=== PATIENT | female | born 1940 | race Two or more races ===

== ENCOUNTER → 2016-04-21 | Outpatient (CLI) | payer MEDICARE, MEDICAID ==
[2016-04-21 13:24] LABS: ABSOLUTE BASOPHILS # (AUTO) 0.1 10^3/uL (0.0-0.2); ABSOLUTE EOSINOPHILS # (AUTO) 0.1 10^3/uL (0.0-0.6); ABSOLUTE LYMPHOCYTES (AUTO) 1.6 10^3/uL (0.5-4.7); ABSOLUTE MONOCYTES (AUTO) 0.4 10^3/uL (0.1-1.4); BASOPHILS % (AUTO) 0.9 % (0-2); HEMATOCRIT 41.7 % (36.0-47.0); HEMOGLOBIN 14.2 g/dL (12.0-15.5); HGB HCT DIFFERENCE 0.9; LYMPHOCYTES % (AUTO) 21.5 % (13-45); MEAN CORPUSCULAR HEMOGLOBIN 31.3 pg (27.0-33.4); MEAN CORPUSCULAR HGB CONC 33.9 g/dL (32.0-36.0); MEAN CORPUSCULAR VOLUME 92 fl (80-97); MONOCYTES % (AUTO) 6.1 % (3-13); RED BLOOD COUNT 4.52 10^6/uL (3.72-5.28); RED CELL DISTRIBUTION WIDTH 13.1 % (11.5-14.0); SEGMENTED NEUTROPHILS % (AUTO) 69.5 % (42-78); WHITE BLOOD COUNT 7.3 10^3/uL (4.0-10.5)
[2016-04-21 13:55] LABS: ALANINE AMINOTRANSFERASE 37 U/L (9-52); ALBUMIN 4.6 g/dL (3.5-5.0); ALKALINE PHOSPHATASE 66 U/L (38-126); ANION GAP 14 (5-19); ASPARTATE AMINO TRANSFERASE 28 U/L (14-36); BILIRUBIN,TOTAL 0.7 mg/dL (0.2-1.3); BLOOD UREA NITROGEN 29 mg/dL (7-20); CALCIUM 10.3 mg/dL (8.4-10.2); CARBON DIOXIDE 28 mmol/L (22-30); CHLORIDE 99 mmol/L (98-107); CREATININE RESULT 1.26 mg/dL (0.52-1.25); GLUCOSE 100 mg/dL (75-110); POTASSIUM 4.2 mmol/L (3.6-5.0); SODIUM 141.4 mmol/L (137-145); TOTAL PROTEIN 8.2 g/dL (6.3-8.2)
[2016-04-21 14:02] LABS: ERYTHROCYTE SEDIMENTATION RATE 35 mm/hr (0-30)
[2016-04-22 11:38] LABS: JO-1 ANTIBODY <0.2 AI (0.0-0.9)
[2016-04-22 13:13] LABS: ANTI-SS-B AB SJOGREN'S <0.2 AI (0.0-0.9)
[2016-04-23 06:06] LABS: ANGIOTENSIN-CONVERTING ENZYME 20 U/L (14-82)
[2016-04-25 17:37] LABS: CYTOPLASMIC (C-ANCA) <1:20 titer (Neg:<1:20)
== END ==
LOC: LAB 12:05
PROVIDERS: ATTEND Internal Medicine Critical Care Medicine
DX: J45.909 Unspecified asthma, uncomplicated (principal); R05 Cough; R06.09 Other forms of dyspnea; R12 Heartburn; R91.8 Other nonspecific abnormal finding of lung field; R91.1 Solitary pulmonary nodule; J84.10 Pulmonary fibrosis, unspecified; J84.9 Interstitial pulmonary disease, unspecified
CPT/HCPCS: 36415; 80053; 81332; 82164; 83880; 85025; 85652; 86021; 86038; 86140; 86225; 86235; 86430

== ENCOUNTER → 2016-09-14 | Outpatient (CLI) | payer MEDICARE, MEDICAID ==
[~2016-09-14] MED LIST: AMINOPHYLLINE INJ/PF 250 MG/10 ML SDV IV ONE; REGADENOSON INJ 0.4 MG/5 ML DISP.SYRIN IV ONE
--- NOTE | 2016-09-14 19:38 | DRAGON STRESS TEST REPORT ---
INTRAVENOUS LEXISCAN CARDIOLITE STRESS TEST USING SINGLE PHOTON EMMISION COMPUTERIZED TOMOGRAPHIC. DATE OF PROCEDURE: September 14, 2016 INDICATION : Dyspnea CARDIAC RISK FACTORS: Hypertension, dyslipidemia, family history of CAD RESTING EKG: Sinus rhythm, no baseline ST segment changes noted. STRESS EKG: No significant changes noted with LexiScan bolus REASON FOR TERMINATION: Protocol. PROCEDURE REPORT: Baseline heart rate 67 beats per minute with blood pressure of 96/60. Patient had no significant complaints. Heart rate at 2 minutes post bolus 96 with a blood pressure of 93/46. 3 minutes post bolus heart rate 96 with blood pressure of 93/50. No significant EKG changes were noted. Patient had no significant complaints during the procedure or postprocedure. Patient injected with Aminophyllin 75 mg at 3 minutes or later after Lexiscan bolus. CONCLUSIONS: Normal EKG and hemodynamic response to IV LexiScan. NUCLEAR DATA: At rest the patient was given 12.86 millicuries of technetium 99 sestamibi injected intravenously. As per protocol rest gated SPECT images were obtained. Subsequently the patient was given intravenous LexiScan at a dose of 0.4 mg in 5 mL intravenously, followed by flush with normal saline. Subsequently the stress dose of 36.9 millicuries of technetium 99 sestamibi was injected intravenously. As per protocol stress gated images were obtained. NUCLEAR INTERPRETATION: Both raw and processed data were used for interpretation. Visual, qualitative, computer-generated quantitative data was used. There was good myocardial uptake of technetium compound. Motion artifact and soft tissue attenuations were noted. Increased visceral uptake was noted. No definitive areas of transient perfusion defect noted. No definitive areas of fixed perfusion defect or scars noted. EKG gated imaging showed LV EF at 59 %, rest and stress gated EF similar visually. T. I D. ratio was 0.86. Lung heart ratio noted to be at upper normal limits 0.40. No significant extracardiac and abnormal radiotracer activities were noted. RV free wall uptake was noted to be []. IMPRESSION: Also refer to comments under nuclear interpretation. Also test results needs to be interpreted in the context of pretest probability. 1. There is no definitive scintigraphic evidence of LexiScan induced myocardial ischemia. 2. There is no definitive scintigraphic evidence of myocardial infarction/scar. 3. EKG gated imaging shows left ejection fraction of approximately 59 %. 4. Lung/heart ratio seems to be visually increased but at upper limit of normal by computer calculation. Consider interstitial lung disease etc. 5. Clinical correlation requested as occasionally single vessel disease or balanced ischemia could be missed. In approximately 10% of the cases Lexiscan may not cause adequate vasodilatory stress. RECOMMENDATIONS: Aggressive risk factor modification, medical therapy. Clinical correlation with echocardiogram derived ejection fraction. Inability to exercise by itself can lead to increased cardiovascular event risks. Anu Merlos M.D., [facility]ITALCarol Piling Setter cooker helper, Board certified in cardiovascular diseases, Nuclear cardiology, Echocardiography Cardiac CT and cardiac MRI Ph. [phone] [facility]
== END ==
LOC: RAD 07:50
PROVIDERS: ATTEND Internal Medicine Cardiovascular Disease
DX: R06.09 Other forms of dyspnea (principal)
CPT/HCPCS: 93017; 78452; A9500; J2785; J0280; Q9969

== ENCOUNTER → 2016-09-18 | Outpatient (CLI) | payer MEDICARE, MEDICAID ==
[2016-09-18 09:24] LABS: ABSOLUTE BASOPHILS # (AUTO) 0.1 10^3/uL (0.0-0.2); ABSOLUTE EOSINOPHILS # (AUTO) 0.3 10^3/uL (0.0-0.6); ABSOLUTE LYMPHOCYTES (AUTO) 1.7 10^3/uL (0.5-4.7); ABSOLUTE MONOCYTES (AUTO) 0.5 10^3/uL (0.1-1.4); ABSOLUTE NEUT (AUTO) 4.6 10^3/uL (1.7-8.2); BASOPHILS % (AUTO) 0.9 % (0-2); EOSINOPHILS % (AUTO) 4.6 % (0-6); HEMATOCRIT 37.9 % (36.0-47.0); HEMOGLOBIN 13.1 g/dL (12.0-15.5); HGB HCT DIFFERENCE 1.4; LYMPHOCYTES % (AUTO) 23.2 % (13-45); MEAN CORPUSCULAR HEMOGLOBIN 32.2 pg (27.0-33.4); MEAN CORPUSCULAR HGB CONC 34.7 g/dL (32.0-36.0); MEAN CORPUSCULAR VOLUME 93 fl (80-97); MONOCYTES % (AUTO) 7.5 % (3-13); RED BLOOD COUNT 4.09 10^6/uL (3.72-5.28); RED CELL DISTRIBUTION WIDTH 14.2 % (11.5-14.0); SEGMENTED NEUTROPHILS % (AUTO) 63.8 % (42-78); WHITE BLOOD COUNT 7.2 10^3/uL (4.0-10.5)
[2016-09-18 09:39] LABS: PARTIAL THROMBOPLASTIN TIME 31.5 SEC (23.5-35.8); PROTHROMBIN TIME 12.8 SEC (11.4-15.4)
[2016-09-18 09:42] LABS: ANION GAP 11 (5-19); BLOOD UREA NITROGEN 23 mg/dL (7-20); CALCIUM 9.5 mg/dL (8.4-10.2); CARBON DIOXIDE 27 mmol/L (22-30); CHLORIDE 104 mmol/L (98-107); CREATININE RESULT 1.19 mg/dL (0.52-1.25); GLUCOSE 99 mg/dL (75-110); POTASSIUM 4.5 mmol/L (3.6-5.0); SODIUM 142.1 mmol/L (137-145)
== END ==
LOC: OD 08:22
PROVIDERS: ATTEND Internal Medicine Critical Care Medicine
DX: J45.909 Unspecified asthma, uncomplicated (principal); R06.09 Other forms of dyspnea; R91.8 Other nonspecific abnormal finding of lung field; R05 Cough; K21.9 Gastro-esophageal reflux disease without esophagitis; R12 Heartburn; J84.9 Interstitial pulmonary disease, unspecified; J84.10 Pulmonary fibrosis, unspecified; M19.90 Unspecified osteoarthritis, unspecified site
CPT/HCPCS: 36415; 80048; 85025; 85610; 85730

== ENCOUNTER 2016-09-20 08:08 | Day surgery (SDC) | payer MEDICARE, MEDICAID ==
[~2016-09-20 08:08] MED LIST changes: -AMINOPHYLLINE INJ/PF 250 MG/10 ML SDV IV ONE; +EPINEPHRINE INJ 1 MG/10 ML DISP.SYRIN ONE; +EPINEPHRINE INJ/PF 1 MG/1 ML AMPULE ONE; +FLUMAZENIL INJ 0.5 MG/5 ML VIAL IV ONE; +LIDOCAINE 2% INJ (20 MG/ML) 20 ML MDV ONE; +LIDOCAINE 2% JELLY 30 ML TUBE ONE; +MIDAZOLAM 2 MG/2 ML INJ ONE; +NALOXONE HCL INJ/PF 0.4 MG/1 ML SDV ONE; -REGADENOSON INJ 0.4 MG/5 ML DISP.SYRIN IV ONE
[2016-09-20] MEDS: MIDAZOLAM 2 MG/2 ML INJ ONE ×14 (10:50→11:31)
[2016-09-20] MEDS: FENTANYL CITRATE INJ/PF 100 MCG/2 ML AMPUL ONE ×7 (11:01→11:29)
--- NOTE | 2016-09-20 12:25 | RADIOLOGY REPORT (SQ) ---
EXAM DESCRIPTION: CHEST SINGLE VIEW COMPLETED DATE/TIME: 09/20/2016 12:13 pm REASON FOR STUDY: POST BRONCH COMPARISON: None. EXAM PARAMETERS: NUMBER OF VIEWS: One view. TECHNIQUE: Single frontal radiographic view of the chest acquired. RADIATION DOSE: NA LIMITATIONS: None. FINDINGS: LUNGS AND PLEURA: Focal airspace opacity noted in the left retrocardiac region could repre sent area of atelectasis, edema, or infiltrate. There is pulmonary vascular congestion and interstit ial prominence noted throughout. No pneumothorax. MEDIASTINUM AND HILAR STRUCTURES: No masses. Contour normal. HEART AND VASCULAR STRUCTURES: Heart normal in size. Normal vasculature. BONES: No acute findings. HARDWARE: EKG leads overlie the chest. OTHER: No other significant finding. IMPRESSION: Airspace opacity noted in the left lung base in the retrocardiac region which could be a telectasis, infiltrate, or edema. There is prominence of pulmonary vasculature and interstitium whic h could represent underlying edema/ infection versus chronic changes. No pneumothorax post bronchosc opy. TECHNICAL DOCUMENTATION: JOB ID: [id number]
--- NOTE | 2016-09-20 12:43 | OPERATIVE REPORT E ---
Operative Report NAME: NICKY PAULINO : 1940 AGE: 75Y DATE OF SURGERY: 09/20/2016 ROOM: SURGEON: LENA KLEIN M.D. INDICATIONS: The patient is a 75-year-old lady who came in for flexible bronchoscopy with bronchial washing, bronchoalveolar lavage, and transbronchial lung biopsy for new onset of interstitial lung disease. Complained about increased shortness of breath Pre-Operative Diagnosis: Interstitial lung disease - negative CTD work up. - possible NSIP vs sarcoidosis vs UIP vs aytpical mycobacterial or bacterial or fungal infection. Post Operative Diagnosis: the same. Surgeon: Dr Klein Procedure: Flexible bronchoscopy with bronchial washing both lungs; bronchoalveolar lavage left upper lobe - lingular segments and right lower lobe - posterior basal segment; transbronchial lung biopsy x 2 on left upper lobe inferior lingula and another x 2 left upper lobe superior lingula. Blood loss: < 5 ml. Consent was obtained from the patient. Patient verbalized understanding of the indication, risks, and potential complications of the procedure such as pneumothorax, bleeding, or infection. PROCEDURE: Patient was given 2% lidocaine solution 5 mL via a nebulizer and 2% lidocaine solution 3 mL was also given by atomizer to the oropharyngeal area. Then, 2% lidocaine gel was applied to cotton swabs on the dorsal pharyngeal area. The mouth guard was placed and the flexible bronchoscope was inserted though the mouth guard. Patient was given Versed at increments of 0.5 mg for a total dose of 7 mg and fentanyl at increments of 25 mcg IV for a total of 150 mcg. The vocal cords were visualized and appeared normal. There are no lesions noted. Trachea appeared normal. Amira was sharp at the midline. One mL of 1% lidocaine solution was given incrementally as the flexible bronchoscope was advanced for a total dose of 2% lidocaine solution of 25 mL. The right mainstem bronchus, right upper lobe bronchi, and the left lower lobe bronchi, and the right middle lobe bronchus appeared normal. Left upper lobe bronchi, lingular bronchi, and the left lower lobe bronchi appeared normal. Bronchial washing was performed on both sides. The bronchoalveolar lavage was performed on the lingular segments of the left upper lobe and the bronchoalveolar lavage was performed on the right lobe posterior basal segments. Bronchoalveolar lavage will be sent for cytology and microbiology. Transbronchial lung biopsy was performed on left upper lobe superior lingular segment x2 and inferior lingular segment x2. There is no active bleeding noted following the biopsy. Cold saline solution was applied on the biopsy area. Patient seemed to tolerate the procedure. The post bronchoscopy chest x-ray did not show any obvious signs of pneumothorax. Patient will be sent home. The patient issued discharge home criteria and the chest x-ray is reported negative for pneumothorax. Pulmonary follow up in 2-3 weeks. DICTATING PHYSICIAN: LENA KLEIN MD,MARLON,MPH [id number] PHY#: [id number] ID: [id number] JOB#: [id number] ACCT: [id number] cc:LENA KLEIN M.D. > MTDD
--- NOTE | 2016-09-20 13:28 | EKG REPORT ---
SEVERITY:- BORDERLINE ECG - SINUS RHYTHM LVH BY VOLTAGE NONSPECIFIC ST-T CHANGES- INFERIOR LEADS : Confirmed by: Nixon Bond MD 20-Sep-2016 13:28:08
[2016-09-20 14:53] VITALS: BP 100/63
== END 2016-09-20 14:25 | disposition home or self-care (01) ==
LOC: OROUT 08:08
PROVIDERS: ATTEND Internal Medicine Critical Care Medicine
PROC: 0B9F8ZX Drainage of Right Lower Lung Lobe, Via Natural or Artificial Opening Endoscopic, Diagnostic (ICD-10-PCS; 2016-09-20)
PROC: 0BBG8ZX Excision of Left Upper Lung Lobe, Via Natural or Artificial Opening Endoscopic, Diagnostic (ICD-10-PCS; principal; 2016-09-20 10:00)
PROC: 0B988ZX Drainage of Left Upper Lobe Bronchus, Via Natural or Artificial Opening Endoscopic, Diagnostic (ICD-10-PCS; 2016-09-20 10:00)
DX: R91.8 Other nonspecific abnormal finding of lung field (principal); J84.9 Interstitial pulmonary disease, unspecified; J45.909 Unspecified asthma, uncomplicated; R06.09 Other forms of dyspnea; R05 Cough; K21.9 Gastro-esophageal reflux disease without esophagitis; R12 Heartburn; J84.10 Pulmonary fibrosis, unspecified; M19.90 Unspecified osteoarthritis, unspecified site; Z79.51 Long term (current) use of inhaled steroids; Z79.82 Long term (current) use of aspirin; Z79.899 Other long term (current) drug therapy
CPT/HCPCS: 31625; 31624; 87070; 87205; 87206; 87116; 87101; 87077; 87186; 87015; 88162; 88104 ×2; 88305 ×2; 88312 ×2; 71010; 93005; 93010; J2250; J3490; J3010; J0171; J2310